=== PATIENT | female | born 1950 | race Caucasian/White ===

== ENCOUNTER 2019-07-03 09:35 | Outpatient (CLI) | payer OTHER, MEDICARE, SELFPAY ==
[2019-07-03] VITALS (10 sets, daily range): BP systolic 93–142; BP diastolic 41–90; PULSE 66–71; RESP 18; TEMP 36.3–37.1; O2SAT 86–90; BMI 36.9
== END 2019-07-03 09:36 | disposition home or self-care (01) ==
PROVIDERS: PCP Nurse Practitioner Family; Visit Provider Nurse Practitioner Family
DX: D50.9 Iron deficiency anemia, unspecified (principal)
CPT/HCPCS: 36415; 36430; 86850; 86900; 86920; P9016